=== PATIENT | female | born 1970 | race Asian ===

== ENCOUNTER → 2021-04-28 | Outpatient (CLI) | payer BC ==
[2021-04-28 10:05] LABS: HEMOGLOBIN 13.1 gm/dl (12.3-15.3); RED BLOOD COUNT 4.26 M/UL (4.00-5.10); WHITE BLOOD COUNT 7.4 K/UL (4.5-11.0)
[2021-04-28 10:24] LABS: BUN/CREATININE RATIO 20 (0-10)
[2021-04-29 09:13] LABS: FSH 33.9 mIU/mL (.); LUTEINIZING HORMONE(LH) 27.5 mIU/mL (.)
== END ==
LOC: LAB 08:42
PROVIDERS: Internal Medicine
DX: N95.1 Menopausal and female climacteric states (principal); I10 Essential (primary) hypertension; R73.9 Hyperglycemia, unspecified
CPT/HCPCS: 36415; 80048; 80061; 80076; 82043; 83001; 83002; 83036; 84443; 85025

== ENCOUNTER → 2021-05-13 | Outpatient (CLI) | payer BC | LOC: US 09:00 → MAMO 05-15 10:30 | DX: R74.8 Abnormal levels of other serum enzymes (principal); K76.0 Fatty (change of) liver, not elsewhere classified | CPT/HCPCS: 76705 ==